=== PATIENT | male | born 1990 | race Caucasian/White ===

== ENCOUNTER 2017-04-15 13:37 | Emergency (ER) | payer SELFPAY ==
[~2017-04-15] VITALS: Ht 182.9 cm; Wt 86.0 kg
[2017-04-15 13:39] VITALS: BP 134/89
== END 2017-04-15 14:23 | disposition left against medical advice (07) ==
LOC: ER 13:37
DX: Z53.21 Procedure and treatment not carried out due to patient leaving prior to being seen by health care provider (principal)

== ENCOUNTER 2017-04-15 18:50 | Emergency (ER) | payer SELFPAY ==
[~2017-04-15] VITALS: Ht 182.9 cm; Wt 87.0 kg
[~2017-04-15 18:50] MED LIST: IOHEXOL-300 100 ML BOTTLE ONE; SODIUM CHLORIDE 0.9% 10ML VIAL ONE
[2017-04-16] MEDS ORDERED: MORPHINE SULFATE 4 MG/ML CPJ (NOT FOR IM USE) IV STA (00:14)
[2017-04-16] MEDS ORDERED: ONDANSETRON HCL 4MG/2ML VIAL IV STA (00:14)
[2017-04-16] MEDS ORDERED: HYDROCODONE/ACETAMINOPHEN 5/325MG TABLET PO ONE ×2 (00:15→01:00)
[2017-04-16 00:45] LABS: BASOPHILS % 0.5 % (0.0-2.0); EOSINOPHILS % 4.9 % (0.0-5.0); HEMATOCRIT. 44.7 % (42.0-52.0); HEMOGLOBIN. 15.7 g/dL (14.0-18.0); LYMPHOCYTES % 21.3 % (20.0-50.0); MEAN CORPUSCULAR HEMOGLOBIN 29.8 pg (28.0-32.0); MEAN CORPUSCULAR VOLUME 84.8 fL (80.0-94.0); MEAN PLATELET VOLUME 8.3 fl (7.4-10.4); MONOCYTES % 11.6 % (2.0-8.0); NEUTROPHILS % 61.7 % (40.0-76.0); PLATELET 201 x1000/uL (130-400); RED BLOOD CELL COUNT 5.27 mill/uL (4.7-6.1); RED CELL DISTRIBUTION WIDTH 12.7 % (11.6-14.6)
[2017-04-16 00:52] LABS: INR 1.1
[2017-04-16 00:57] LABS: CHLORIDE 102 mEq/L (98-107)
[2017-04-16 01:06] LABS: CARBON DIOXIDE 30 mEq/L (21-32)
[2017-04-16 04:04] VITALS: BP 137/102
== END 2017-04-16 04:05 | disposition home or self-care (01) ==
LOC: ER 18:50
DX: R10.9 Unspecified abdominal pain (principal); M54.5 Low back pain; F17.210 Nicotine dependence, cigarettes, uncomplicated
CPT/HCPCS: 36415; 70486; 71260; 73502; 74177; 80053; 85025; 85610; 99285; A4216; Q9967; Z7610